=== PATIENT | male | born 1965 | race Caucasian/White ===

== ENCOUNTER 2022-04-19 19:41 | Emergency (ER) | payer OTHER ==
[2022-04-19 19:49] VITALS: BP 165/71; PULSE 76; RESP 18; TEMP 97.7; BMI 22.1
== END 2022-04-20 04:21 | disposition home or self-care (01) ==
LOC: JER 19:41
DX: S91.301A Unspecified open wound, right foot, initial encounter (principal); Y99.9 Unspecified external cause status
CPT/HCPCS: 99283-25